=== PATIENT | female | born 1995 | race Caucasian/White ===

== ENCOUNTER 2019-06-03 16:29 | Emergency (ER) | payer OTHER ==
[~2019-06-03] VITALS: Ht 165.1 cm; Wt 70.0 kg
[2019-06-03 17:13] LABS: MICROSCOPIC NOT IND
[2019-06-03 17:54] LABS: HCG UR SG 1.017 (1.003-1.030)
[2019-06-03] MEDS ORDERED: AZITHROMYCIN 500 MG TABLET ONE (18:19)
[2019-06-03] MEDS ORDERED: CEFTRIAXONE 250 MG ONE (18:19)
[2019-06-03 18:27] LABS: CLUE CELLS NONE SEEN (NONE SEEN); WET PREP WBCS NONE SEEN (FEW)
[2019-06-03] MEDS ORDERED: CEFTRIAXONE 250 MG IM ONE (18:30)
[2019-06-03] MEDS ORDERED: AZITHROMYCIN 500 MG TABLET PO ONE (18:30)
[2019-06-03 18:35] VITALS: BP 122/56
== END 2019-06-03 19:05 | disposition home or self-care (01) ==
LOC: ED 16:30
DX: R30.0 Dysuria (principal)
CPT/HCPCS: 81003; 81025; 87210; 87491; 87591; 87808; 96372; 99283; J0696